=== PATIENT | male | born 1960 | race Hispanic/Latino ===

== ENCOUNTER 2020-05-19 12:41 | Emergency (ER) | payer SELFPAY ==
--- NOTE | 2020-05-19 13:25 | EDM.PDOC ---
ED HPI GENERAL MEDICAL PROBLEM - General Chief Complaint: Abdominal Pain Stated Complaint: RIGHT SIDE PAIN Time Seen by Provider: 05/19/20 13:18 Source of Information: Reports: Patient History Limitations: Reports: No Limitations - History of Present Illness INITIAL COMMENTS - FREE TEXT/NARRATIVE: HISTORY AND PHYSICAL: History of present illness: Patient is a 60-year-old male who presents to the emergency room today with complaints of right lower quadrant pain and nausea that started this afternoon. Patient denies any fever, chills, headache, change in vision, syncope or near syncope. Denies any chest pain, back pain, shortness of breath or cough. Denies any vomiting, diarrhea, constipation or dysuria. Had a normal BM this morning. Denies any testicular pain, redness, or swelling - no STD concerns. Has not noted any blood in urine or stool. Patient has been eating and drinking appropriately. Review of systems: As per history of present illness and below otherwise all systems reviewed and negative. Past medical history: As per history of present illness and as reviewed below otherwise noncontributory. Surgical history: As per history of present illness and as reviewed below otherwise noncontributory. Social history: See social history for further information Family history: As per history of present illness and as reviewed below otherwise noncontri butory. Physical exam: General: Well developed and well nourished. Alert and orientated x 3. Nontoxic in appearance and in no acute distress. Vital signs are stable and have been reviewed by me. Nursing notes were reviewed. HEENT: Atraumatic, normocephalic, pupils equal and reactive bilaterally, negative for conjunctival pallor or scleral icterus, mucous membranes moist, TMs normal bilaterally, throat clear, neck supple, nontender, trachea midline. No drooling or trismus noted. No meningeal signs. No hot potato voice noted. Lungs: Clear to auscultation, breath sounds equal bilaterally, chest nontender. Normal work of breathing, no accessory muscles used. Heart: S1S2, regular rate and rhythm without overt murmur Abdomen: Soft, nondistended, nontender. Negative for masses or hepatosplenom egaly. Negative for costovertebral tenderness. Skin: Intact, warm, dry. No lesions or rashes noted. Hematologic: No petechiae or purpra. Mucosa appropriate color and normal nail bed color and refill. Extremities: Atraumatic, moves all extremities per self without difficulty or deficits, negative for cords or calf pain. Neurovascular unremarkable. Neuro: Awake, alert, oriented. Cranial nerves II through XII unremarkable. Cerebellum unremarkable. Motor and sensory unremarkable throughout. Exam nonfocal. Psychiatric: Mood and affect are appropriate. Normal thought process. Answering questions appropriately. Notes: Slight luekocytosis noted. CT shows an obstructive mid right ureteral stone measuring about 2.7 mm. Diverticulosis without diverticulitis. Slight increase in stool. The appendix is visualized and no evidence of appendicitis. I did contact Dr. Vargas, urology on-call, patient is appropriate for outpatient follow-up. Patient states he feels improved after fluids and medications. He is tolerating p.o. Upon reevaluation he appears to feel much better and is appropriate for discharge to home. We discussed signs and symptoms that would prompt them to return to the Emergency Department. Medication, follow up and supportive care measures were reviewed and discussed. Voices understanding and is agreeable to plan of care. Denies any further questions or concerns at this t felicita. Diagnostics: CBC, CMP, UA, CT abd/pelvis Therapeutics: IV fluids, morphine, zofran Prescription: [place], Flomax, Cipro Impression: Kidney Stone, right Plan: 1. Today your physical exam shows a kidney stone in your right urteter. Take your medications as directed. Increase your fluids. 2. Tylenol and/or ibuprofen as needed for pain management. 3. You are encouraged to follow up with Dr Vargas, urologist, in the next few days for re-evaluation and further care/management. If your symptoms should worsen, new symptoms develop or any of the signs and symptoms we discussed should arise please return to the emergency room or call 911 (if needed). Definitive disposition and diagnosis as appropriate pending reevaluation and review of above. Right Lower Abdominal Pain Score (Numeric/FACES): 6 - Related Data Allergies Allergy/AdvReac Type Severity Reaction Status Date / Time No Known Allergies Allergy Verified 05/19/20 13:11 Home Meds: Home Meds Acetaminophen/HYDROcodone [[place] 325-5 MG] 1 dose PO Q4H #20 tablet 05/19/20 [Rx] Ciprofloxacin HCl [Cipro] 500 mg PO BID 3 Days #6 tablet 05/19/20 [Rx] Naproxen Sodium [Aleve] 220 mg PO BID 05/19/20 [History] Tamsulosin [Tamsulosin 24 Hr] 0.4 mg PO DAILY #5 cap.er 05/19/20 [Rx] ED ROS GENERAL - Review of Systems Review Of Systems: Comprehensive ROS is negative, except as noted in HPI. ED EXAM, GI/ABD - Physical Exam Exam: See Below (See dictation) Course - Vital Signs Last Recorded V/S: Last Vital Signs Temp 97.1 F 05/19/20 13:15 Pulse 90 05/19/20 13:15 Resp 20 05/19/20 13:15 BP 130/92 H 05/19/20 13:15 Pulse Ox 96 05/19/20 13:15 - Orders/Labs/Meds Labs: Laboratory Tests 05/19/20 05/19/20 05/19/20 Range/Units 13:30 13:30 13:50 WBC 11.39 H (4.0-11.0) K/uL RBC 4.89 (4.50-5.90) M/uL Hgb 16.2 (13.0-17.0) g/dL Hct 46.7 (38.0-50.0) % MCV 95.5 (80.0-98.0) fL MCH 33.1 H (27.0-32.0) pg MCHC 34.7 (31.0-37.0) g/dL RDW Std Deviation 43.9 (28.0-62.0) fl RDW Coeff of Roxana 13 (11.0-15.0) % Plt Count 322 (150-400) K/uL MPV 9.60 (7.40-12.00) fL Neut % (Auto) 81.9 H (48.0-80.0) % Lymph % (Auto) 11.1 L (16.0-40.0) % [place] % (Auto) 5.5 (0.0-15.0) % Eos % (Auto) 1.1 (0.0-7.0) % Baso % (Auto) 0.4 (0.0-1.5) % Neut # (Auto) 9.3 H (1.4-5.7) K/uL Lymph # (Auto) 1.3 (0.6-2.4) K/uL [place] # (Auto) 0.6 (0.0-0.8) K/uL Eos # (Auto) 0.1 (0.0-0.7) K/uL Baso # (Auto) 0.0 (0.0-0.1) K/uL Nucleated RBC % 0.0 /100WBC Nucleated RBCs # 0 K/uL Sodium 139 (136-148) mmol/L Potassium 4.1 (3.5-5.1) mmol/L Chloride 105 (98-107) mmol/L Carbon Dioxide 24.7 (21.0-32.0) mmol/L BUN 14 (7.0-18.0) mg/dL Creatinine 1.2 (0.8-1.3) mg/dL Est Cr Clr Drug Dosing 58.37 mL/min Estimated GFR (MDRD) > 60.0 ml/min Glucose 127 H (74-106) mg/dL Calcium 8.7 (8.5-10.1) mg/dL Total Bilirubin 0.3 (0.2-1.0) mg/dL AST 22 (15-37) IU/L ALT 31 (14-63) IU/L Alkaline Phosphatase 106 (46-116) U/L Total Protein 8.4 H (6.4-8.2) g/dL Albumin 4.4 (3.4-5.0) g/dL Globulin 4.0 (2.6-4.0) g/dL Albumin/Globulin Ratio 1.1 (0.9-1.6) Urine Color DARK YELLOW Urine Appearance CLOUDY Urine pH 5.5 (5.0-8.0) Ur Specific [place] >= 1.030 (1.001-1.035) Urine Protein 30 H (NEGATIVE) mg/dL Urine Glucose (UA) NEGATIVE (NEGATIVE) mg/dL Urine Ketones NEGATIVE (NEGATIVE) mg/dL Urine Occult Blood LARGE H (NEGATIVE) Urine Nitrite NEGATIVE (NEGATIVE) Urine Bilirubin SMALL H (NEGATIVE) Urine Ictotest NEGATIVE Urine Urobilinogen 0.2 (<2.0) EU/dL Ur Leukocyte Esterase NEGATIVE (NEGATIVE) Urine RBC TOO NUMEROUS TO CT (0-2/HPF) Urine WBC 1-2 (0-5/HPF) Ur Epithelial Cells FEW (NONE-FEW) Urine Bacteria FEW (NEGATIVE) Urine Mucus LIGHT (NONE-MOD) Meds: Medications Discontinued Medications Generic Name Dose Route Start Last Admin Trade Name Freq PRN Reason Stop Dose Admin Sodium Chloride 1,000 mls @ 999 mls/hr 05/19/20 13:38 05/19/20 13:55 Normal Saline IV 05/19/20 14:38 999 mls/hr STAT ONE Administration Iopamidol 100 ml 05/19/20 14:44 05/19/20 14:44 Isovue Multipack-370 (76%) IVPUSH 05/19/20 14:45 100 ml ONETIME ONE Administration Morphine Sulfate 4 mg 05/19/20 13:38 05/19/20 13:56 Morphine IVPUSH 05/19/20 13:39 4 mg ONETIME ONE Administration Ondansetron HCl 4 mg 05/19/20 13:38 05/19/20 13:55 Zofran IVPUSH 05/19/20 13:39 4 mg ONETIME ONE Administration Departure - Departure Time of Disposition: 15:33 Disposition: Home, Self-Care 01 Clinical Impression: Kidney stone on right side - Discharge Information Prescriptions: Ciprofloxacin HCl [Cipro] 500 mg PO BID 3 Days #6 tablet Tamsulosin [Tamsulosin 24 Hr] 0.4 mg PO DAILY #5 cap.er Acetaminophen/HYDROcodone [[place] 325-5 MG] 1 dose PO Q4H #20 tablet Instructions: Kidney Stones, [id number] Referrals: Román Stewart MD [Primary Care Provider] - Forms: ED Department Discharge Additional Instructions: The following information is given to patients seen in the emergency department who are being discharged to home. This information is to outline your options for follow-up care. We provide all patients seen in our emergency department with a follow-up referral. The need for follow-up, as well as the timing and circumstances, are variable depending upon the specifics of your emergency department visit. If you don't have a primary care physician on staff, we will provide you with a referral. We always advise you to contact your personal physician following an emergency department visit to inform them of the circumstance of the visit and for follow-up with them and/or the need for any referrals to a consulting specialist. The emergency department will also refer you to a specialist when appropriate. This referral assures that you have the opportunity for follow-up care with a specialist. All of these measure are taken in an effort to provide you with optimal care, which includes your follow-up. Under all circumstances we always encourage you to contact your private physician who remains a resource for coordinating your care. When calling for follow-up care, please make the office aware that this follow-up is from your recent emergency room visit. If for any reason you are refused follow-up, please contact the [facility] Emergency Department at and asked to speak to the emergency department charge nurse. [facility] Specialty Care - Urology [address] [place] [id number] Thank you for choosing the [facility] emergency department in [place] for your medical needs today. It was a pleasure caring for you. Today you were seen in the emergency department for right lower quadrant pain. 1. Today your physical exam shows a kidney stone in your right urteter. Take your medications as directed. Increase your fluids. 2. Tylenol and/or ibuprofen as needed for pain management. 3. You are encouraged to follow up with Dr Vargas, urologist, in the next few days for re-evaluation and further care/management. If your symptoms should worsen, new symptoms develop or any of the signs and symptoms we discussed should arise please return to the emergency room or call 911 (if needed). Sepsis Event Note (ED) - Focused Exam Vital Signs: Vital Signs Temp Pulse Resp BP Pulse Ox 05/19/20 13:15 97.1 F 90 20 130/92 H 96
[2020-05-19] MEDS ORDERED: Morphine 4 MG/ML Syringe IVPUSH ONE (13:38)
[2020-05-19] MEDS ORDERED: Ondansetron 4 MG/2 ML SDV IVPUSH ONE (13:38)
[2020-05-19] MEDS ORDERED: Sodium Chloride 0.9% 1,000 ML IV ONE (13:38)
[2020-05-19 13:57] LABS: BLOOD UREA NITROGEN,BUN 14 mg/dL (7.0-18.0); CARBON DIOXIDE,CO2 24.7 mmol/L (21.0-32.0); CHLORIDE,CL 105 mmol/L (98-107); GLUCOSE RANDOM 127 mg/dL (74-106); POTASSIUM,K 4.1 mmol/L (3.5-5.1); SODIUM,NA 139 mmol/L (136-148)
[2020-05-19] MEDS ORDERED: Iopamidol 755 MG/ML 200 ML Multipack Bottle IVPUSH ONE (14:44)
--- NOTE | 2020-05-19 15:11 | CT ---
CT abdomen and pelvis Technique: Multiple axial sections were obtained from above the dome of the diaphragm inferiorly through the pubic symphysis. Intravenous contrast was utilized. No oral contrast has been given. Findings: Increased stool is seen throughout the transverse and right colon. Increased dual also noted within loops of small bowel compatible with fecalized small bowel material. No discrete findings of appendicitis are seen. No inflammatory change is seen within the right lower abdomen. Visualized lung bases show nothing acute. Liver contains no focal abnormality. Spleen appears normal. Kidneys show diminished enhancement on the right side as compared to the left side. Small obstructing stone located within the mid right ureter measuring 2.7 mm is seen as an etiology for the decreased perfusion. Aorta shows no aneurysm. No retroperitoneal adenopathy or mesenteric abnormalities are seen. Mild diverticuli are seen within the descending and sigmoid colon with no findings of diverticulitis. No free fluid or inflammatory change is seen. Bone window settings were reviewed which shows spondylolytic defects at L5-S1 with minimal spondylolisthesis. No acute osseous finding is seen. Impression: 1. Decreased enhancement of the right kidney which is caused by an obstructing mid right ureteral stone measuring about 2.7 mm. 2. Diverticulosis without diverticulitis. 3. Spondylolytic defects at L5-S1. 4. Slight increased stool as noted above. 5. No additional abnormality is seen. Diagnostic code #3 This report was dictated in MDT
== END 2020-05-19 16:00 | disposition home or self-care (01) ==
LOC: MW.ED 12:41
DX: N20.2 Calculus of kidney with calculus of ureter (principal)
CPT/HCPCS: 36415; 74177; 80053; 81001; 85025; 96361; 96374; 96375; 99284; J2270; J2405; J7030; Q9967; 99283